=== PATIENT | female | born 1965 | race Caucasian/White ===

== ENCOUNTER 2018-11-11 07:13 | Day surgery (SDC) | payer OTHER, BC ==
[~2018-11-11] VITALS: Ht 165.1 cm; Wt 94.6 kg
[~2018-11-11 07:13] MED LIST: Adipex-P37.5 MG PO
--- NOTE | 2018-11-11 07:57 | NUR ---
11/11/18 0757 Edvin Smith 1ST IV ATTEMPT IN RH UNSUCCESSFUL, ORSCNILDA 2ND IV ATTEMPT SUCCESSFUL, ORSC.LISETH
== END 2018-11-11 09:19 | disposition home or self-care (01) ==
LOC: ORSCSDS 07:13
PROVIDERS: Internal Medicine Gastroenterology
PROC: 0DBK8ZX Excision of Ascending Colon, Via Natural or Artificial Opening Endoscopic, Diagnostic (ICD-10-PCS; principal; 2018-11-11 08:30)
DX: Z12.11 Encounter for screening for malignant neoplasm of colon (principal); K57.30 Diverticulosis of large intestine without perforation or abscess without bleeding; K64.8 Other hemorrhoids; E66.9 Obesity, unspecified; Z68.35 Body mass index [BMI] 35.0-35.9, adult; Z79.899 Other long term (current) drug therapy
CPT/HCPCS: 88305; J0461; J1980; J2405; J2704; J7120

== ENCOUNTER → 2023-08-17 | Outpatient (CLI) | payer OTHER, BC ==
[2023-08-17 09:16] LABS: Source, Urine Voided
[2023-08-17 13:28] LABS: Appearance, Urine Turbid (Clear); Bilirubin, Urine Neg (Neg); Blood, Urine 2+ (Neg); Color, Urine Yellow (P-Yellow); Glucose Qualitative, Urine Neg (Neg); Ketones, Urine Neg (Neg); Leukocyte Esterase, Urine 3+ (Neg); Nitrite, Urine Neg (Neg); Protein, Urine 1+ (Neg); Specific Gravity, Urine 1.025 (1.003-1.022); Urobilinogen, Urine NORM (Normal)
[2023-08-17 13:48] LABS: Amorphous Heavy (0-Heavy); Bacteria Mod /hpf; Squamous Epithelial Cells Few /hpf (Few)
== END | disposition home or self-care (01) ==
LOC: LAB 09:14 → LAB SHORT 09:14
PROVIDERS: Nurse Practitioner Family
DX: Z00.00 Encounter for general adult medical examination without abnormal findings (principal)
CPT/HCPCS: 81001; 87086

== ENCOUNTER → 2024-03-04 | Outpatient (CLI) | payer OTHER, BC | LOC: LAB SHORT 13:44 → LAB 13:44 | DX: M79.89 Other specified soft tissue disorders (principal) | CPT/HCPCS: 88305 ==